=== PATIENT | male | born 1945 | race Caucasian/White ===

== ENCOUNTER 2022-07-02 10:45 | Inpatient (IN) | payer OTHER, SELFPAY ==
[2022-06-26 14:17] VITALS: BMI 21.4
[2022-07-02] VITALS (12 sets, daily range): BP systolic 105–140; BP diastolic 40–71; PULSE 61–72; RESP 10–18; TEMP 36.1–37.3; O2SAT 94–100; BMI 21.4
--- NOTE | 2022-07-02 | DI.RAD.S_ITS ---
PROCEDURE: XR LUMBAR SPINE 2-3V INDICATIONS: TLIF TECHNIQUE: 3 intraoperative fluoroscopic spot films were obtained COMPARISON: None. FINDINGS: Low resolution intraoperative fluoroscopic spot films were obtained during interbody fusion and pedicle screw placement the lower lumbar spine IMPRESSION: Fluoroscopic guidance Approved by: Bob Boyd M.D. on 07/02/2022 at 16:43
--- NOTE | 2022-07-02 11:19 | PM.PREOP ---
Pre-operative Note COVID-19 COVID-19 status: Negative Result date/Date tested (Pos, Neg/Pending): 07/01/22 Criteria for continued procedure: Expected advancement of disease process, Possibility delay results in more complex future surgery or treatment, Increased loss of function, Continuing or worsening of significant or severe pain, Deterioration of the patient's condition or overall health and Delay expected to result in less-positive ultimate med/surg outcome Interval Note History & Physical reviewed/Exam performed by Physician: Yes Changes to H&P: No
[2022-07-02 11:37] LABS: COVID19 -Nasal RAPID Negative (Negative)
[2022-07-02] MEDS: ACETAMINOPHEN 325 MG TABLET 975 MG PO (12:19)
[2022-07-02] MEDS: PREGABALIN 75 MG CAPSULE PO (12:20)
[2022-07-02] MEDS: LACTATED RINGERS 1,000 ML 42 ML IV ×2 (12:21→16:10)
--- NOTE | 2022-07-02 12:21 | P.OP_ITS ---
Operative Date/Time/Diagnoses Date of procedure: 07/02/22 Time of procedure: 13:00 Pre-op diagnosis: 1. 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 L2-3, L3-4 Postero-lateral and posterior interbody fusion 2. L2-3, L3-4 interbody cage placement. 3. L1-2, L2-3, L3-4 decompressive laminectomy with bilateral facetecomies 4. L2-3, L3-4 Posterior segmental instrumentation 5. L1-2 posterolateral fusion 6. [place] of bone marrow from iliac crest 7. Utilization of microsurgical technique and operating microscope 8 Utilization of robotic assisted navigation Same procedure as scheduled: Yes Indications: Patient has been having chronic back pain and worsening lumbar radiculopathy. Patient failed multiple conservative management with worsening pain weakness and numbness in her lower extremity. Patient has been having difficulty performing activity of daily living. After discussing risks benefits of treatment options, patient elected proceed with surgery. Surgeon: Laci Chery Scale Technician: Bertha Allred Click Yes if Unassisted: No Anesthesia Type: General Operative Notes Closure Type: primary Specimen(s): none sent Prosthetic devices, grafts, tissues, transplants, or devices: Globus CREO MIS screws, Rise cages Applied: catheter Estimated Blood Loss (mL): 200 Blood products transfused: none Procedure in detail: Patient was seen in the preoperative area. Risks and benefits of the surgery was discussed with the patient. Informed consent was obtained from the patient and placed in the chart. Surgical site was marked. Patient was taken to the operative room. General anesthesia was administered. Prophylactic antibiotic was given to the patient less than 30 min before the incision was made. Patient was placed into a prone position on the Mariano table. Patient's back was then prepped and draped in the sterile fashion. Time-out was performed at this time. After patient was prepped and draped, patient's PSIS was palpated and marked bilaterally. Small 1 cm incision was made over the PSIS for placement of the reference probes. Two trocar was placed into the PSIS 1 on each side. The reference probe was attached to the trocar of the reference apparatus. At this time the C-arm imaging was used to confirm AP and lateral of L1, L2, L3, L4 vertebrae and merged the C-arm imaging using the Stormpulse robotic navigation system with the CT of the lumbar spine. After successful merging was completed and confirmed, skin marker was used to kira out the skin incision using the Stormpulse robotic arm. Bilateral incision was made at this time. Pre templated trajectory was used and guided using the Stormpulse robotic navigation system for bilateral L1, L2, L3, L4 pedicle screw placement. This was done by using the robotic arm to guide the high-speed bur to make a cortical entry point. Next a drill was placed also using the robotic arm and guided using the navigation system drilling partially through bilateral L1, L2, L3, L4 pedicles. Next, L1, L2, L3, L4 pedicle screws it was pre templated and measured was placed onto the power road train driver and inserted into the pedicles bilaterally. After all 8 screws were placed C-arm imaging was taken of both AP and lateral to confirm the placement. Excellent placement of the screws were confirmed and a matched precisely with the pre planned screw placement using the navigation system. MARs retractor was inserted using [employer] guidence. Globus MARS retractors was placed inside the incision and docked onto the L1, L2, L3 lamina. Using microsurgical technique and operating microscope, a L1, L2, L3 laminectomy and L1-2, L2-3, L3-4 facetectomy was performed using a Kerrison rongeur. Patient was found have severe lateral recess and neural foramen sten osis which was fully decompressed after the laminectomy facetectomy. More than 75% of the facets were removed during the process of decompression rendering L1- 2, L2-3, L3-4 level grossly unstable and required a fusion procedure at the same time. The disc space at L1-2, L2-3, L3-4 was identified, and a total diskectomy was performed at L2-3, L3-4 level. The endplates were decorticated using a rasp and shaver. The total diskectomy and decortication was performed at L2-3, L3-4 level in order to to accomplish a L2-3, L3-4 interbody fusion. The local bone from the laminectomy and facetectomy was saved for local bone grafting. After the total diskectomy and decortication was completed, Trifecta bone graft material was combined with local bone that was harvested earlier. At this time, a separate skin is incision was made over the iliac crest. A Jamshidi needle was inserted into the iliac crest through a separate skin incision. 5 cc of bone marrow aspiration was obtained through the separate skin incision using a Jamshidi needle from the iliac crest. The bone marrow aspiration was combined with local bone and the Trifecta bone grafting material. The bone grafting material was placed into the L2-3, L3-4 interbody space along with expandable cages. One cage each was inserted into the L2-3 L3-4 interbody space along with bone graft material. The cage was expanded to its maximum height using the torque limiting screwdriver. The disc preparation as well as the cage insertion were also performed under navigation guidance. After the cage was placed, AP and lateral C-arm imaging was taken to confirm placement of the cage and excellent position was confirmed. Globus MARS retractor was inserted and docked onto the L1-2, L2-3, L3-4 posterolateral gutter on the right side. Using the power drill, posterior- lateral decortication was performed at L1-2, L2-3, L3-4 level until bleeding cortical bone was identified. The remaining bone grafting material was placed into the L1-2, L2-3, L3-4 posterior lateral gutter he order to accomplish posterolateral fusion at the L1-2, L2-3, L3-4 level. At this time the tulips were attached to the L1, L2, L3, L4 pedicle screw sh anks. After measuring the length of the rods, they were inserted into the tulips of the pedicle screws and locked in place using locking caps and torque limiting screwdriver bilaterally. Total 8 caps and 2 titanium rods was used in order to complete the posterior instrumentation construct. After all the hardware was placed, and confirmed with AP and lateral C-arm imaging, the wound was then irrigated with sterile normal saline and packed with Ray-Jong gauze for 3 min to accomplish hemostasis. After the gauze was removed the deep fascia was closed with #1 Vicryl suture. The subcutaneous layer was closed with 2-0 Vicryl. The skin was closed with skin presley. Patient tolerated the procedure well. There were no complications. Neuro monitoring system was used to monitor patient's neurologic status throughout entire procedure. There was no disturbance of the neural monitoring signals throughout the case. Complications: none Post-operative Condition: stable Disposition: PACU Plan for aftercare: Admit to inpatient hospital
[2022-07-02] MEDS: CEFAZOLIN 2 GM/100 ML PREMIX 100 ML IV ×2 (12:27→16:17)
--- NOTE | 2022-07-02 13:07 | SUR.OPER ---
Prone on spine table, head in foam head support, padded chest and pelvic supports, gel pad at knees, lower legs supported by pillows; nipples, genitalia and toes free of pressure, arms secured on foam padded arm boards at <90 degrees abduction. Tape over blanket at thigh secured to table.
[2022-07-02] MEDS: BUPIVACAINE LIPOSOME 266 MG/20 ML VIAL INJ (13:33)
[2022-07-02] MEDS: BUPIVACAINE 0.5% W/ EPI (PF) 30 ML VIAL INJ (13:33)
[2022-07-02] MEDS: HYDROMORPHONE 2 MG INJ IV (17:04)
[2022-07-02] MEDS: LORazepam 2 MG/ML INJ 0.25 MG IV (17:08)
[2022-07-02] MEDS: hydrOXYzine 50 MG/ML INJ 25 MG IM (17:10)
[2022-07-02] MEDS: ONDANSETRON 4 MG/2 ML INJ IV (17:15)
[2022-07-02] MEDS: SODIUM CHLORIDE 0.9% 1,000 ML 100 ML IV (20:09)
[2022-07-02] MEDS: hydrOXYzine pamoate 25 MG CAPSULE PO (21:57)
[2022-07-02] MEDS: HYDROMORPHONE 0.5 MG INJ IV (21:57)
[2022-07-03] MEDS: HYDROMORPHONE 0.5 MG INJ IV ×4 (00:35→21:59)
[2022-07-03] MEDS: CEFAZOLIN 2 GM/100 ML PREMIX 100 ML IV (00:35)
[2022-07-03 04:00] VITALS: BP 108/44; PULSE 74; RESP 17; TEMP 36.4; O2SAT 94
[2022-07-03 04:19] LABS: Hematocrit 28.1 % (41-53)
[2022-07-03] MEDS: DOCUSATE 100 MG CAPSULE PO ×2 (09:09→22:02)
[2022-07-03] MEDS: hydroCHLOROthiazide 25 MG TABLET 12.5 MG PO (09:09)
[2022-07-03] MEDS: atenoloL 25 MG TABLET PO (09:09)
[2022-07-03] MEDS: ACETAMINOPHEN 325 MG TABLET 650 MG PO ×2 (09:09→15:58)
[2022-07-03] MEDS: LEVOTHYROXINE 75 MCG TABLET PO (09:09)
[2022-07-03] MEDS: OXYCODONE IR 5 MG TABLET 10 MG PO ×2 (09:10→12:22)
--- NOTE | 2022-07-03 09:26 | P.PN_ITS ---
Subjective Subjective Date Patient Seen: 07/03/22 Time Patient Seen: 09:27 Interval history: Patient states his pain is moderate to severe. Denies fever or chills. No nausea or vomiting. History of weakness in the left lower extremity prior to surgery. Exam Vital Signs (past 8 hours): - 07/03/22 04:00 Temperature 97.6 F Pulse Rate 74 Respiratory Rate 17 Blood Pressure 108/44 L Pulse Oximetry 94 Oxygen Flow Rate 0 Oxygen Delivery Method Room Air Oxygen Flow Rate 0 Narrative Exam Narrative: 77-year-old male resting comfortably in bed in no apparent distress. Sensation intact to light touch bilateral lower extremities. 5/5 strength right lower extremity. Patient unable to move his toes on the left and is unable to dorsiflex or plantar flex on the left. New dressing is clean, dry and intact. The prior dressing was removed earlier this morning and was saturated. Nurse states there was scant drainage from around 1 of the staple sites otherwise the presley were intact. Const General: cooperative and comfortable Nutritional Appearance: average body habitus Orientation: alert Resp Effort & Inspection: normal respiratory effort and able to speak in complete sentences Objective Labs 07/03/22 03:50 Labs: Laboratory Results - last 24 hr 07/02/22 07/03/22 11:19 03:50 Hgb 10.0 L Hct 28.1 L SARS-CoV-2 (PCR) Negative PFSH Medical History Abdominal aortic aneurysm (AAA) BPH (benign prostatic hyperplasia) Chronic viral hepatitis C Cirrhosis COVID-19 Easy bruisability Esophoria Hearing impaired HLD (hyperlipidemia) HTN (hypertension) Hypothyroidism Liver cell carcinoma Sciatica Stiff neck Thrombocytopenia Surgical History History of esophagogastroduodenoscopy (EGD) History of surgical procedure (2014) Hx of bilateral cataract extraction (~2014) Hx of colonoscopy Hx of tonsillectomy Social History household members: spouse Smoking Status: Former smoker alcohol intake: former Assessment & Plan Post-op Postoperative Procedures: Procedures Operation Date: 07/02/22 12:30 Actual Procedure Side Surgeon p L2-3, L3-4 TLIF w. posterior instrumentation, L1-4 PSF w. instrumentation - Robot Laci Chery MD Postoperative day: 1 Postoperative status narrative: Stable status post lumbar fusion, history of weakness left lower extremity Anemia due to acute blood loss during surgery Postoperative plan narrative: Continue to work on pain control Mobilize with physical therapy, limit bending, twisting, lifting Discontinue Mcconnell catheter Discharge home today or tomorrow depending on his ability to mobilize with physical therapy.
[2022-07-03 09:34] VITALS: BMI 21.4
[2022-07-03] MEDS: hydrOXYzine pamoate 25 MG CAPSULE PO ×2 (09:51→15:58)
[2022-07-03] MEDS: ONDANSETRON 4 MG/2 ML INJ IV (09:51)
[2022-07-03 10:41] VITALS: BP 136/49; PULSE 75; RESP 16; TEMP 36.6; O2SAT 98
--- NOTE | 2022-07-03 12:40 | PT.IIE ---
Current Diagnoses Spinal stenosis, lumbar region with neurogenic claudication (07/02/22) Surgery Performed Operation Date: 07/02/22 12:30 Actual Procedures p L2-3, L3-4 TLIF w. posterior instrumentation, L1-4 PSF w. instrumentation -Robot - Laci Chery MD Surgical History (Last Reviewed 07/03/22 @ 09:32 by YENNI AcostaC) History of esophagogastroduodenoscopy (EGD) History of surgical procedure (2014) Hx of bilateral cataract extraction (~2014) Hx of colonoscopy Hx of tonsillectomy Medical History (Last Reviewed 07/03/22 @ 09:32 by YENNI AcostaC) Abdominal aortic aneurysm (AAA) BPH (benign prostatic hyperplasia) Chronic viral hepatitis C Cirrhosis COVID-19 Easy bruisability Esophoria Hearing impaired HLD (hyperlipidemia) HTN (hypertension) Hypothyroidism Liver cell carcinoma Sciatica Stiff neck Thrombocytopenia Physical Therapy Inpatient Evaluation/Re-Eval M1 PT/OT-IP Prior Functional Status Start: 07/03/22 10:01 Freq: NEEDED Status: Active Protocol: Document 07/03/22 12:29 [facility] (Rec: 07/03/22 12:40 [facility] [id number]) Medical Review Prior Functional Status Medical History Reviewed Yes Diet/Fluid Consistency Regular Communication [place]; wears hearing aides enrique Mobility and Gait walked with FWW or cane, has both Activities of Daily Living and IADL's modified independent Social History Household Members spouse Living Arrangements Mobile home Number of Stairs To Enter/Railing? 4 Home Environment Standard Height Toilet Home Equipment Front Wheel Walker,Straight Cane Employment Status Unknown M2 PT-IP Current Condition Start: 07/03/22 10:01 Freq: NEEDED Status: Active Protocol: Document 07/03/22 12:29 [facility] (Rec: 07/03/22 12:40 [facility] [id number]) Physical Therapy Current Condition Current Condition Evaluation Date 07/03/22 Treatment Diagnosis weakness s/p lumbar surgery Onset Date 07/02/22 M3 PT-IP Subjective Start: 07/03/22 10:01 Freq: NEEDED Status: Active Protocol: Document 07/03/22 12:29 [facility] (Rec: 07/03/22 12:40 [facility] [id number]) Subjective Physical Therapy Visit Type Type Initial Evaluation Visit Start Time 10:00 Visit Stop Time 10:30 Total Visit Minutes 30 Number of TELEVISION PRODUCTION TECHNICIAN Visits 0 Physical Therapy Visit Comments Patient Comments Hoping to go home today or tomorrow with assistance with his Patient Goals return home Therapy Pain Assessment Pain When Pain Assessed At Rest Pain Present Pain Present Pain Reported Location Left Back Intensity 5 Scale Used Numeric (0 - 10) Description Aching,Burning,Tender, Tightness M4 PT-IP Mobility and Gait Start: 07/03/22 10:01 Freq: NEEDED Status: Active Protocol: Document 07/03/22 12:29 [facility] (Rec: 07/03/22 12:40 [facility] [id number]) PT-Transfer Assessment Sit to and From Stand Sit to and from Stand Contact Guard Assistance Equipment Transfer Assistive Device Gait Belt,Front Wheeled Walker Transfers Transfer Destination Chair Transfer Technique stand to sit Transfer Ability Level of Assist Contact Guard Assistance Comments Mobility Comments Patient occasionally overweight-shifting this am, lifting 1-2 wheels of walker off floor, requ CGA to min assist for bal Gait Assessment Gait Gait Assistance Required: Contact Guard Assist,Minimum Assistance Distance (Feet) 60 Able to Maintain Weight Bearing Status Yes During Gait Assistive Devices Assistive Device Gait Belt,Front Wheeled Walker Gait Deviations General Gait Pattern Antalgic,Flexed Trunk,Lateral Trunk Lean,Wide Based Gait Factors Limiting Gait Function Factors Limiting Gait Function Decreased Strength,Pain Comments Gait Comments lacking ankle df and pf left LE, steppage gait Stair Climbing Assessment Comments Stair Climbing Comments plan to assess in pm PT-Balance Assessment Sitting Balance and Reactions Static Sitting Balance Ability Good Dynamic Sitting Balance Ability Good Standing Balance and Reactions Static Standing Balance Ability Fair Dynamic Standing Balance Ability Poor M5 PT-IP Objective Assessments Start: 07/03/22 10:01 Freq: NEEDED Status: Active Protocol: Document 07/03/22 12:29 [facility] (Rec: 07/03/22 12:40 [facility] [id number]) Orientation Orientation/Cognition Level of Alertness Alert Orientation Name,Place,Situation Language Function Ability No Deficits Noted Safety Awareness Decreased Safety Awareness Memory Description No Deficits Noted Gross Range of Motion Lower Extremity ROM Assessment Within Functional Limits Strength Comments Strength Comments no MMT due to surgery but 0/5 ankle df and pf left M6 PT-IP Treatment Start: 07/03/22 10:01 Freq: NEEDED Status: Active Protocol: Document 07/03/22 12:29 [facility] (Rec: 07/03/22 12:40 [facility] [id number]) Physical Therapy Treatment Education Education Provided Precautions,Safety M7 PT-IP Assessment and Plan Start: 07/03/22 10:01 Freq: NEEDED Status: Active Protocol: Document 07/03/22 12:29 [facility] (Rec: 07/03/22 12:40 [facility] [id number]) PT Summary Assessment and Plan Potential Rehabilitation Potential Good Status of Condition at Evaluation Evolving Summary Impairments Pain,Strength,Balance,Bed Mobility,Transfers,Gait, Activity Tolerance Goals Bed Mobility Goal Independent Transfer Goal Independent Gait Goal Standby Assistance Gait Distance 120 Other Goals patient able to verbalize post -op precautions Days to Meet Goals 5 Treatment Plan Physical Therapy Treatment Plan Bed Mobility Training,Transfer Training,Gait Training, Therapeutic Exercise,Post Op Education,Hot or Cold Pack Other Recommendations and Next Treatment logroll education and practice Focus (pt. up in chair this am prior and after treatment.) stair training Precautions Lumbar Precautions Log Roll,No Twisting,Limit Bending,Lifting Restriction of 10 lbs Recommendations To Nursing Amount of Assist Needed 1 Person Assist Discharge Recommendations PT Discharge Recommendations Home with Assistance,Home Health Transportation Needs at Discharge Private Vehicle
--- NOTE | 2022-07-03 14:39 | OT.IP.EVAL ---
Current Diagnoses Spinal stenosis, lumbar region with neurogenic claudication (07/02/22) Surgery Performed Operation Date: 07/02/22 12:30 Actual Procedures p L2-3, L3-4 TLIF w. posterior instrumentation, L1-4 PSF w. instrumentation -Robot - Laci Chery MD Past Medical History (Last Reviewed 07/03/22 @ 09:32 by Brendon Lazcano PA-C) Abdominal aortic aneurysm (AAA) BPH (benign prostatic hyperplasia) Chronic viral hepatitis C Cirrhosis COVID-19 Easy bruisability Esophoria Hearing impaired HLD (hyperlipidemia) HTN (hypertension) Hypothyroidism Liver cell carcinoma Sciatica Stiff neck Thrombocytopenia Surgical History (Last Reviewed 07/03/22 @ 09:32 by Brendon Lazcano PA-C) History of esophagogastroduodenoscopy (EGD) History of surgical procedure (2014) Hx of bilateral cataract extraction (~2014) Hx of colonoscopy Hx of tonsillectomy Occupational Therapy Inpatient Evaluation/Re-Eval M1 PT/OT-IP Prior Functional Status Start: 07/03/22 10:01 Freq: NEEDED Status: Active Protocol: Document 07/03/22 12:29 SAK (Rec: 07/03/22 12:40 [facility] [id number]) Medical Review Prior Functional Status Medical History Reviewed Yes Diet/Fluid Consistency Regular Communication [place]; wears hearing aides enrique Mobility and Gait walked with FWW or cane, has both Activities of Daily Living and IADL's modified independent Social History Household Members spouse Living Arrangements Mobile home Number of Stairs To Enter/Railing? 4 Home Environment Standard Height Toilet Home Equipment Front Wheel Walker,Straight Cane Employment Status Unknown M1 PT/OT-IP Prior Functional Status Start: 07/03/22 15:33 Freq: NEEDED Status: Active Protocol: Document 07/03/22 14:03 [facility] (Rec: 07/03/22 15:59 [facility] [id number]) Medical Review Prior Functional Status Medical History Reviewed Yes Diet/Fluid Consistency Regular Communication [place]; wears hearing aides enrique Mobility and Gait walked with FWW or cane, has both Activities of Daily Living and IADL's modified independent. Pt's did IADL's and pain the bills Prior Functional Level (Other details) Pt states his able to assist him at home Social History Household Members spouse Living Arrangements Mobile home Number of Floors (Floors) One Floor Number of Stairs To Enter/Railing? 5 steps with left rail to get into the mobile house Home Environment Standard Height Toilet,Tub/ Shower Home Equipment Front Wheel Walker,Straight Cane,Hog Feeder M2 OT-IP Current Condition Start: 07/03/22 15:33 Freq: Status: Active Protocol: Document 07/03/22 14:03 [facility] (Rec: 07/03/22 15:59 [facility] [id number]) Occupational Therapy Current Condition Current Condition Evaluation Date 07/03/22 Treatment Diagnosis S/p L2-3, L3-4 TLIF, L1-4 PSF Diagnosis Onset Date 07/02/22 Post Operative Precautions Lumbar Precautions Log Roll,No Twisting,Limit Bending,Lifting Restriction of 10 lbs,Gait Belt above Incisional Area M3 OT- IP Subjective and Pain Start: 07/03/22 15:33 Freq: Status: Active Protocol: Document 07/03/22 14:03 [facility] (Rec: 07/03/22 15:59 [facility] [id number]) OT- Subjective Occupational Therapy Visit Type Type Initial Evaluation Visit Start Time 14:03 Visit Stop Time 14:39 Total Visit Minutes 36 Occupational Therapy Visit Comments Patient Comments Pt agreed to get up to use the bathroom and brush his teeth. Patient/Caregiver Goals To go home OT Pain Assessment Pain When Pain Assessed During Mobility Pain Present Pain Present Pain Reported Location Left Back Intensity 7 Scale Used Guajardo-Mcarthur (Faces) M4 OT- IP ADL's Start: 07/03/22 15:33 Freq: Status: Active Protocol: Document 07/03/22 14:03 [facility] (Rec: 07/03/22 15:59 [facility] [id number]) OT [id number] Comments OT Self-Feeding Comments Pt not hungry but was able to drink an Ensure after asking and checking with pt's nurse OT ADL-Grooming General Evaluation Grooming Ability Standby Assistance Comments OT Grooming Comments Pt able to do with FWW in front of him. OT ADL-Oral Care General Eval Oral Care Ability Independent OT ADL-Dressing General Eval Lower Body Dressing Ability Maximum Assistance Comments OT Dressing Comments Able to practice use of sock aid and lumber bearer. Pt a bit groggy and needing cues. OT ADL-Toileting General Evaluation Toileting Ability Standby Assistance Comments OT Toileting Comments CGA/SBA with FWW while pt standing to urinate OT ADL-Bathing Comments OT Bathing Comments Pt refusing at this time. Pt has a shower chair in his tub/ shower at home. M5 OT- IP IADL's Start: 07/03/22 15:33 Freq: Status: Active Protocol: Document 07/03/22 14:03 [facility] (Rec: 07/03/22 15:59 [facility] [id number]) OT-Instrumental Activities of Daily Living Deficits IADL Deficits Identified Deficits Home Safety Awareness Awareness of Need for Assistance at Home Good Awareness Ability to Problem Solve Emergency Able to Problem Solve Situations Home Safety Comments Pt a little groggy and needing vc for safety and assist with balance at this time and will need assist from his for needs. Money Management Money Management Caregiver Provides Assistance Meal Preparation Meal Preparation Caregiver Provides Assist Chemical Engineering Intern Chemical Engineering Intern Caregiver Provides Assist M6 OT- IP Functional Cognition Start: 07/03/22 15:33 Freq: Status: Active Protocol: Document 07/03/22 14:03 [facility] (Rec: 07/03/22 15:59 [facility] [id number]) Cognitive Factors Limiting Selfcare Function Cognitive Ability Level of Alertness Alert,Drowsy Attention Span Ability Capable of Focused Attention, Capable of Sustained Attention Ability to Follow Commands Able to Follow One Step Commands with Increased Time, Able to Follow One Step Commands with Repetition Safety Awareness Decreased Recall of Precautions,Decreased Ability to Apply Precautions, Underestimates Need for Assistance Cognitive Comments Cognitive Assessment Comments Pt needing cues to keep the FWW in front of him, vc for lumbar precautions for ADl and mobility needs. OT- Vision and Hearing OT- Hearing Assessment OT- Hearing Assessment Use of Hearing Aids OT- Vision Assessment Visual Acuity Glasses For Reading M7 OT- IP Mobility and Balance Start: 07/03/22 15:33 Freq: Status: Active Protocol: Document 07/03/22 14:03 [facility] (Rec: 07/03/22 15:59 [facility] [id number]) OT-Transfer Assessment Sit to and From Stand Sit to and from Stand Minimal Assistance,Moderate Assistance Transfers Transfer Ability Minimal Assistance Technique Transfer Destination Bed,Chair Transfer Technique Stand Step Pivot Devices Transfer Assistive Devices Gait Belt,Front Wheeled Walker Comments Mobility Comments MIN/MODA to stand and vc to use his hands to push up from the bed or armrests of the recliner to stand. OT- Balance Assessment Sitting Balance and Reactions Static Sitting Balance Ability Good Dynamic Sitting Balance Ability Good Standing Balance and Reactions Static Standing Balance Ability Fair Dynamic Standing Balance Ability Fair M8 OT- IP Objective Assessments Start: 07/03/22 15:33 Freq: Status: Active Protocol: Document 07/03/22 14:03 [facility] (Rec: 07/03/22 15:59 [facility] [id number]) OT-Muscle Tone Assessment Muscle Tone WNL Yes M9 OT- IP Assessment and Plan Start: 07/03/22 15:33 Freq: Status: Active Protocol: Document 07/03/22 14:03 [facility] (Rec: 07/03/22 15:59 [facility] [id number]) OT Summary Assessment and Plan Potential Rehabilitation Potential Good Analytic Complexity at Evaluation Low Summary OT Impairments Pain,Balance,Functional Mobility,Grooming,Dressing, Toileting,Bathing,Toilet Transfers,Shower Transfers, Activity Tolerance Progress Towards Goals Slow Progress due to Pain,Slow Progress due to Activity Tolerance Assessment Summary Pt low complexity and main barriers are steps , a little groggy and needing cues to incorporate his back precautions for ADl and mobility needs. Pt looking to go home tomorrow and has a supportive to assist. Goals Grooming Goal Independent Dressing Goal Minimal Assistance Toileting Goal Independent Bathing Goal Standby Assistance Toilet Transfer Goal Standby Assistance Shower Transfer Goal Minimal Assistance Patient/Caregiver Education Goal Caregiver Independent Assisting Patient Days to Meet Goals 5 Frequency of Treatment Frequency Of Treatment Once a Day Treatment Plan OT Treatment Plan ADL Training,Functional Mobility,Patient/Family Education,Discharge Planning Discharge Recommendations OT Discharge Recommendations Home with 01/12 Assist Available Transportation Needs at Discharge Private Vehicle
--- NOTE | 2022-07-03 15:04 | CM.DANOTE ---
Initial DCP Assessment Note Pt is a 77 yo male, resident of [place] , now POD#1 from: p L2-3, L3-4 TLIF w. posterior instrumentation, L1-4 PSF w. instrumentation -Robot - Laci Chery MD PCP: Maxine Sosa Payer: [facility] Reviewed chart, pt discussed in multidisciplinary rounds this morning. Therapy has cleared pt for return home w/family to assist and pt has planned for home, DC order from Ortho expected this evening vs tomorrow depending on pain management - which patient is currently describing as moderate to severe No barriers identified at this time to patient's safe discharge home w/family to assist; close outpatient f/u recommended. SAJI Jeffery Discharge Planning/Care Management CM Discharge Assessment Start: 07/03/22 14:59 Freq: Status: Active Protocol: Document 07/03/22 15:00 [facility] (Rec: 07/03/22 15:03 [id number]) Discharge Planning Assessment Assigned Donations Attendant SAJI Palmer DPOA/Assigned Designee Name Agata Marquis, spouse Contact Information [phone] Advance Directives? Yes Advance Directives on File No History Provided By Patient,Medical Record Prior Living Arrangements Mobile home Household Members spouse Type of transporation used prior to Relies on Others admit Independent with ADL's No: Mod Indp. [place] walks w/FWW Is patient alert and oriented? Yes Needs Assistance With Meal Prep,Home Chores / Shopping Patient/Family Preference OP PT Therapy Barriers to Discharge No Comment Home w/spouse to assist, outpatient PT. Cleared by therapy for this plan, likely Thursday07.04.22 dpending on pain control Discharge Plan Home Transportation Arrangement Spouse Referrals Initiated None needed
[2022-07-03 15:22] VITALS: BP 115/53; PULSE 75; RESP 16; TEMP 36.2; O2SAT 98
--- NOTE | 2022-07-03 16:04 | PT.IPTN ---
Current Diagnoses Spinal stenosis, lumbar region with neurogenic claudication (07/02/22) Surgery Performed Operation Date: 07/02/22 12:30 Actual Procedures p L2-3, L3-4 TLIF w. posterior instrumentation, L1-4 PSF w. instrumentation -Robot - Laci Chery MD Physical Therapy Treatment Note M2 PT-IP Current Condition Start: 07/03/22 10:01 Freq: NEEDED Status: Active Protocol: Document 07/03/22 15:35 SP (Rec: 07/03/22 17:41 SP [id number]) Physical Therapy Current Condition Current Condition Evaluation Date 07/03/22 Treatment Diagnosis weakness s/p lumbar surgery Onset Date 07/02/22 M3 PT-IP Subjective Start: 07/03/22 10:01 Freq: NEEDED Status: Active Protocol: Document 07/03/22 15:35 SP (Rec: 07/03/22 17:41 SP [id number]) Subjective Physical Therapy Visit Type Type Treatment Note Visit Start Time 15:35 Visit Stop Time 16:04 Total Visit Minutes 29 Notes Vitals: seated in chair: BP 131/64 HR 75 SaO2 98% on RA Number of FRONT OFFICE AGENT Visits 1 Physical Therapy Visit Comments Patient Comments Hoping to go home tomorrow with assistance with his . Patient Goals return home but agreeable to going to SNF if needed. Therapy Pain Assessment Pain When Pain Assessed At Rest Pain Present Pain Present Pain Reported Location Left Back Intensity 5 Scale Used 5/10 resting, 7-8/10 with mobility Description Spasm,Stabbing,With Movement Pain Behaviors Facial Grimacing,Guarding, Restlessness,Wincing Pain Management Techniques Distraction,Modification of Treatment,Re-positioning, Timing of Activity with Medications M4 PT-IP Mobility and Gait Start: 07/03/22 10:01 Freq: NEEDED Status: Active Protocol: Document 07/03/22 15:35 SP (Rec: 07/03/22 17:41 SP [id number]) PT-Transfer Assessment Sit to and From Stand Sit to and from Stand Maximum Assistance,1 Person Assistance,Use of Upper Extremities Equipment Transfer Assistive Device Gait Belt,Front Wheeled Walker Orthotic/Prosthetic Devices or Brace: No Transfers Transfer Destination Bed,Chair Transfer Technique SPT, ambulated with FWW Transfer Ability Level of Assist Minimal Assistance,Moderate Assistance,Maximum Assistance, 1 Person Assistance,Use of Upper Extremities Comments Mobility Comments Pt up in chair when arrived. Reports was premedicated recently still in moderate pain. Scoot to EOchair CGA. STS Max A x1 with trunk coming to full stand, very heavy into BUEs on Chair arms, cued wt shift forward and quad facilitation, impulsive each UE onto FWW. Mod/Max A for trunk steadying w/ FWW, shaky BLEs/ BUEs. SPT w/ FWW chair> bed unsteady BUE/BLEs Mod/Max A x1 and cues for sequencing w / FWW therapist little support with FWW mgt, Mod A slow descent to sit on L side bed. SBA cued breath due to heavy BUE WB on bed and trunk/ BUEs shaking. STS Max A x1 Mod BUE WB support, gait around end bed to L side bed unsteady BUEs and impulsive FWW mgt/ trunk sways lateral, noted L ankle unable complete DF during advancement/lifts hip/ knee, states is his baseline. Pt BUEs shaking uncontrolled and trunk unsteady CG/Min A seated at EOB. Pt declined recommendation to rest in bed states can not lay on side L side for log roll technique, requested to walk back to other side and sit back in chair, will be sleeping in chair at home. STS from EOB, gait around end bed w/FWW Mod/ Max A unsteady, jerked FWW impulsively to avoid sink and tipped FWW to R with near LOB, FRONT OFFICE AGENT provided Max A for stability recover, cued upright posturing/stop breath helped decrease unsteadiness pt requested further gait to bathroom w/FWW mod/ Max A x1, completed voiding minimally ( not measured) standing FWW over toilet Min/Mod A trunk stability and BUE moderate WB on FWW. Pt returned to chair Mod A x1 improved gait and stability with slower pacing and more proximity near back legs of FWW and continued cues for posturing and proximity to back legs FWW. Pt had legs elevated, chair alarm donned and all needs in reach before left. Pt stated will arrange for his to get ride here by 11am tomorrow to initiated CGT. Suggest premedicate if needed. Will continue to assess progress. Gait Assessment Gait Gait Assistance Required: Moderate Assistance,Maximum Assistance,1 Person Assist Distance (Feet) 20 Able to Maintain Weight Bearing Status Yes During Gait Assistive Devices Assistive Device Gait Belt,Front Wheeled Walker Gait Deviations General Gait Pattern Antalgic,Decreased Stride Length,Decreased Feet Clearance,Flexed Trunk,Lateral Trunk Lean,Step-to Gait,Wide Based Gait Factors Limiting Gait Function Factors Limiting Gait Function Decreased Activity Tolerance, Decreased Strength,Difficulty Following Directions,Limited Range of Motion,Pain,Poor Balance,Poor Safety Awareness Comments Gait Comments lacking ankle df and pf left LE, steppage gait, Unsteady/ shaky BUE/ BLEs, heavy on FWW requiring max cues for posturing, breath slow pacing LE advancement, closer to FWW near back legs and appropriate hand placement on fWW handles for safety. Slow FWW repositioning due to impulsive tipped x1 Mod/Max A for mobiltiy support. Stair Climbing Assessment Comments Stair Climbing Comments Unable to assess due to lack strength, stability, pain and activity tolerance. PT-Balance Assessment Sitting Balance and Reactions Static Sitting Balance Ability Good Dynamic Sitting Balance Ability Fair Standing Balance and Reactions Static Standing Balance Ability Poor Dynamic Standing Balance Ability Poor Device Used FWW M5 PT-IP Objective Assessments Start: 07/03/22 10:01 Freq: NEEDED Status: Active Protocol: Document 07/03/22 12:29 [facility] (Rec: 07/03/22 12:40 [facility] [id number]) Orientation Orientation/Cognition Level of Alertness Alert Orientation Name,Place,Situation Language Function Ability No Deficits Noted Safety Awareness Decreased Safety Awareness Memory Description No Deficits Noted Gross Range of Motion Lower Extremity ROM Assessment Within Functional Limits Strength Comments Strength Comments no MMT due to surgery but 0/5 ankle df and pf left M6 PT-IP Treatment Start: 07/03/22 10:01 Freq: NEEDED Status: Active Protocol: Document 07/03/22 15:35 SP (Rec: 07/03/22 17:41 SP [id number]) Physical Therapy Treatment Education Education Provided Safety, breath for decrease anxiousness. Instructed use of inspirometer. M7 PT-IP Assessment and Plan Start: 07/03/22 10:01 Freq: NEEDED Status: Active Protocol: Document 07/03/22 15:35 SP (Rec: 07/03/22 17:41 SP [id number]) PT Summary Assessment and Plan Potential Rehabilitation Potential Good Status of Condition at Evaluation Evolving Summary Impairments Pain,Strength,Balance,Bed Mobility,Transfers,Gait, Activity Tolerance Progress Towards Goals Slow Progress due to Pain,Slow Progress due to Medical Issues,Slow Progress due to Activity Tolerance Assessment Summary Pt increased physical support due to shakiness/unsteady BUEs /BLEs this tx Max A x1 with increased pain and anxiousness during mobility. Continues decrease L ankle DF/PF mobility and increased pain premedicated. Pt requesting and CGT tomorrow at 11 for assessment if able to walk better and do stairs. Will continue to assess progress. Recommending SNF vs 01/12 available if able to safely support pt. Needs complete 4 stairs. Goals Bed Mobility Goal Independent Transfer Goal Independent Gait Goal Standby Assistance Gait Distance 120 Other Goals patient able to verbalize post -op precautions Days to Meet Goals 5 Frequency of Treatment Frequency Of Treatment Twice a Day Treatment Plan Physical Therapy Treatment Plan Bed Mobility Training,Transfer Training,Gait Training, Therapeutic Exercise,Post Op Education,Hot or Cold Pack Other Recommendations and Next Treatment Check precautions, bed mob, Focus transfers, logroll education, longer distance gait w/FWW w/c follow, stair training if able. CGT at 11am 07/04 Precautions Lumbar Precautions Log Roll,No Twisting,Limit Bending,Lifting Restriction of 10 lbs,Gait Belt above Incisional Area Recommendations To Nursing Amount of Assist Needed 1 Person Assist Discharge Recommendations PT Discharge Recommendations Home with 01/12 Assist Available,Home Health,SNF Rehab,Home vs SNF Transportation Needs at Discharge Private Vehicle,Wheelchair/ Cabulance
[2022-07-03] MEDS: OXYCODONE IR 5 MG TABLET PO (16:12)
[2022-07-03 16:13] VITALS: BP 131/64; PULSE 75; RESP 17; TEMP 36.4; O2SAT 93
[2022-07-03] MEDS: SENNOSIDES 8.6 MG TABLET 17.2 MG PO (22:02)
[2022-07-03] MEDS: PRAVASTATIN 20 MG TABLET 40 MG PO (22:02)
[2022-07-03] MEDS: FINASTERIDE 5 MG TABLET 2.5 MG PO (22:03)
[2022-07-03] MEDS: TRAZODONE 100 MG TABLET 200 MG PO (22:07)
[2022-07-04] MEDS: HYDROMORPHONE 0.5 MG INJ IV (01:50)
[2022-07-04 04:00] VITALS: BP 140/71; PULSE 75; RESP 16; TEMP 36.6; O2SAT 97
[2022-07-04] MEDS: OXYCODONE IR 5 MG TABLET 10 MG PO ×4 (04:09→14:57)
--- NOTE | 2022-07-04 07:56 | P.DS_ITS ---
History of Present Illness History of Present Illness Date Patient Seen: 07/04/22 Time Patient Seen: 07:30 Chief complaint: s/p TLIF Narrative: Patient is up sitting in his chair this morning comfortably. He states that he has nagging pain that is well controlled with medication. He has been sitting up to use the bedside urinal without difficulty. He states his is coming this morning at 11:00 a.m. and he would like to discharge home today if cleared by Physical therapy. Discharge Providers Provider Date of admission: 07/02/22 10:45 Discharge Date: 07/04/22 Primary care physician: PETER Hurtado Consults: 07/02/22 19:53 Consult to Occupational Therapy Evaluate & Treat Comment: Physician Instructions: Evaluate and treat Consult to Physical Therapy Evaluate & Treat Comment: Physician Instructions: Evaluate and Treat Discharge provider: Lynnette Varela PA-C Summary Hospital Course Discharge Diagnosis: Status post TLIF Hospital Course: Operative Date/Time/Diagnoses Date of procedure: 07/02/22 Time of procedure: 13:00 Pre-op diagnosis: 1. 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 L2-3, L3-4 Postero-lateral and posterior interbody fusion 2.? L2-3, L3-4 interbody cage placement. 3.? L1-2, L2-3, L3-4 decompressive laminectomy with bilateral facetecomies 4.? L2-3, L3-4 Posterior segmental instrumentation 5. L1-2 posterolateral fusion 6. Riley of bone marrow from iliac crest 7. Utilization of microsurgical technique and operating microscope 8 Utilization of robotic assisted navigation Same procedure as scheduled: Yes Indications: Patient has been having chronic back pain and worsening lumbar radiculopathy. Patient failed multiple conservative management with worsening pain weakness and numbness in her lower extremity.? Patient has been having difficulty performing activity of daily living.? After discussing risks benefits of treatment options, patient elected proceed with surgery. Surgeon: Laci Chery Sales And Marketing Engineer: Bertha Allred Click Yes if Unassisted: No Anesthesia Type: General Operative Notes Closure Type: primary Specimen(s): none sent Prosthetic devices, grafts, tissues, transplants, or devices: Globus CREO MIS screws, Rise cages Applied: catheter Estimated Blood Loss (mL): 200 Blood products transfused: none Status at Discharge Cognitive/behavioral status at discharge: oriented Functional status at discharge: uses cane/walker Overall status at discharge: patient is progressing back to baseline Exam Vital Signs (past 8 hours): - 07/04/22 04:00 Temperature 97.8 F Pulse Rate 75 Respiratory Rate 16 Blood Pressure 140/71 Pulse Oximetry 97 Oxygen Flow Rate 0 Oxygen Delivery Method Room Air Oxygen Flow Rate 0 Narrative Exam Narrative: Awake, alert, and oriented. Strength and sensation intact to bilateral lower extremities. Bilateral calves soft, compressible, nontender with no palpable cords or masses. Intraoperative dressing clean, dry, and intact. Objective Labs 07/03/22 03:50 PFSH Medical History Abdominal aortic aneurysm (AAA) BPH (benign prostatic hyperplasia) Chronic viral hepatitis C Cirrhosis COVID-19 Easy bruisability Esophoria Hearing impaired HLD (hyperlipidemia) HTN (hypertension) Hypothyroidism Liver cell carcinoma Sciatica Stiff neck Thrombocytopenia Surgical History History of esophagogastroduodenoscopy (EGD) History of surgical procedure (2014) Hx of bilateral cataract extraction (~2014) Hx of colonoscopy Hx of tonsillectomy Social History household members: spouse Smoking Status: Former smoker alcohol intake: former Discharge Assessment & Plan Assessment and Plan Assessment: Patient is progressing as expected after surgery. Plan of Treatment: Plan for discharge to home with his once cleared by Physical therapy. Patient has 5 steps to get into his 1 level home. Discharge Plan Discharge Plan Patient Disposition: Home Provider Discharge Comment: Discharge when safe and cleared by PT Discharge orders & Medications Prescriptions: New acetaminophen 325 mg Tablet 650 mg PO Q6HR PRN (Reason: Pain, Mild (1-3)) Qty: 120 0RF oxycodone 5 mg tablet 5 mg PO Q4-6H PRN (Reason: pain) Qty: 40 0RF ondansetron 4 mg tablet,disintegrating 4 mg PO Q8H PRN (Reason: nausea and vomiting) Qty: 10 0RF Continued pravastatin 40 mg Tablet 40 mg PO BEDTIME meloxicam 15 mg Tablet 15 mg PO DAILY atenolol 25 mg Tablet 25 mg PO DAILY levothyroxine 75 mcg Tablet 75 mcg PO DAILY trazodone 100 mg Tablet 200 mg PO BEDTIME finasteride 5 mg Tablet 2.5 mg PO BEDTIME alfuzosin 10 mg Tablet Extended Release 24 Hr 10 mg PO BEDTIME Rx Instructions: administer after the same meal each day hydrochlorothiazide 12.5 mg Tablet 12.5 mg PO QAM cholecalciferol (vitamin D3) [Vitamin D3] 10 mcg (400 unit) Capsule See Rx Instructions .ROUTE .COMPLEX Rx Instructions: for vitamin supplement Follow up/Referrals: Laci Chery MD [Physician] - As previously scheduled (Follow up with Dr Chery on 07/15/2022 @ 1:[address] [facility] in [place].) Maxine Sosa ARNP [Primary Care Provider] - As previously scheduled (Follow up with Dr Chery on 07/15/2022 @ 1:[address] [facility] in [place].) Diet/Activity/Treatments Diet: Diet as Tolerated Activity: No deep bending or twisting at the waist. No lifting more than 10 pounds. Cold/Heat Therapy: Heating pad to low back as needed for pain. Skin/Wound/Dressing Care Report to your healthcare provider any signs of infection, such as:: chills, fever, night sweats, unusual drainage and unusual redness Dressing: May shower; keep dressing as dry as possible. If dressing becomes wet inside, may remove and replace with clean, dry gauze. No bathing or otherwise soaking incisions. Do not apply any creams, lotions, or ointments to incisions. Visit Report/Discharge Packet Instructions: DI for Transforaminal Lumbar Interbody Fusion Stand Alone Forms: Patient Portal/API, Stroke Signs & Symptoms, Surgery D ischarge Discharge Data Primary Care Provider: Maxine Sosa Quality VTE Deep Vein Thrombosis/Pulmonary Embolism Present on Admission: No
[2022-07-04 08:00] VITALS: BP 144/76; PULSE 74; RESP 17; TEMP 36.6; O2SAT 98
[2022-07-04] MEDS: DOCUSATE 100 MG CAPSULE PO (08:37)
[2022-07-04] MEDS: atenoloL 25 MG TABLET PO (08:37)
[2022-07-04] MEDS: ACETAMINOPHEN 325 MG TABLET 650 MG PO (08:37)
[2022-07-04] MEDS: hydroCHLOROthiazide 25 MG TABLET 12.5 MG PO (08:40)
[2022-07-04] MEDS: hydrOXYzine pamoate 25 MG CAPSULE PO (08:42)
[2022-07-04] MEDS: LEVOTHYROXINE 75 MCG TABLET PO (08:43)
[2022-07-04 11:31] VITALS: BP 126/61; PULSE 72; RESP 17; TEMP 37.1; O2SAT 97
--- NOTE | 2022-07-04 11:52 | OT.IP.TRT ---
Current Diagnoses Spinal stenosis, lumbar region with neurogenic claudication (07/02/22) Surgery Performed Operation Date: 07/02/22 12:30 Actual Procedures p L2-3, L3-4 TLIF w. posterior instrumentation, L1-4 PSF w. instrumentation -Robot - Laci Chery MD Occupational Therapy Treatment Note M2 OT-IP Current Condition Start: 07/03/22 15:33 Freq: Status: Active Protocol: Document 07/03/22 14:03 [facility] (Rec: 07/03/22 15:59 [facility] [id number]) Occupational Therapy Current Condition Current Condition Evaluation Date 07/03/22 Treatment Diagnosis S/p L2-3, L3-4 TLIF, L1-4 PSF Diagnosis Onset Date 07/02/22 Post Operative Precautions Lumbar Precautions Log Roll,No Twisting,Limit Bending,Lifting Restriction of 10 lbs,Gait Belt above Incisional Area M3 OT- IP Subjective and Pain Start: 07/03/22 15:33 Freq: Status: Active Protocol: Document 07/04/22 11:38 [facility] (Rec: 07/04/22 12:43 [facility] [id number]) OT- Subjective Occupational Therapy Visit Type Type Treatment Note Visit Start Time 11:38 Visit Stop Time 11:52 Total Visit Minutes 14 Occupational Therapy Visit Comments Patient Comments Pt states rather stay one more day. Pt's present for caregiver training. Patient/Caregiver Goals To go home. OT Pain Assessment Pain When Pain Assessed At Rest Pain Present Pain Present Pain Reported Location Left Back Intensity 7 Scale Used Numeric (0 - 10) M4 OT- IP ADL's Start: 07/03/22 15:33 Freq: Status: Active Protocol: Document 07/04/22 11:38 [facility] (Rec: 07/04/22 12:43 [facility] [id number]) OT [id number] Comments OT Self-Feeding Comments not at meal time OT ADL-Grooming Comments OT Grooming Comments Pt states just did prior to OT coming into the room OT ADL-Dressing General Eval Lower Body Dressing Ability Standby Assistance Comments OT Dressing Comments Able to practice sock aid and harnessmaker and pt able to do his socks on his own. Pt's states can assist the pt as well. OT ADL-Toileting Comments OT Toileting Comments Not performed. OT ADL-Bathing Comments OT Bathing Comments Pt states in too much pain. M5 OT- IP IADL's Start: 07/03/22 15:33 Freq: Status: Active Protocol: Document 07/03/22 14:03 [facility] (Rec: 07/03/22 15:59 [facility] [id number]) OT-Instrumental Activities of Daily Living Deficits IADL Deficits Identified Deficits Home Safety Awareness Awareness of Need for Assistance at Home Good Awareness Ability to Problem Solve Emergency Able to Problem Solve Situations Home Safety Comments Pt a little groggy and needing vc for safety and assist with balance at this time and will need assist from his for needs. Money Management Money Management Caregiver Provides Assistance Meal Preparation Meal Preparation Caregiver Provides Assist Public Health Nutritionist Public Health Nutritionist Caregiver Provides Assist M6 OT- IP Functional Cognition Start: 07/03/22 15:33 Freq: Status: Active Protocol: Document 07/04/22 11:38 [facility] (Rec: 07/04/22 12:43 [facility] [id number]) Cognitive Factors Limiting Selfcare Function Cognitive Ability Level of Alertness Alert Attention Span Ability Capable of Focused Attention, Capable of Sustained Attention Ability to Follow Commands Able to Follow One Step Commands with Increased Time, Able to Follow One Step Commands with Repetition Safety Awareness Decreased Recall of Precautions,Decreased Ability to Apply Precautions, Underestimates Need for Assistance Cognitive Comments Cognitive Assessment Comments Pt needing cues to use the FWW , cues to follow log rolling, and his back precautions. Pt is a bit impulsive. M7 OT- IP Mobility and Balance Start: 07/03/22 15:33 Freq: Status: Active Protocol: Document 07/04/22 11:38 [facility] (Rec: 07/04/22 12:43 [facility] [id number]) OT- Bed Mobility Assessment Supine to Sit Supine to Sit Assist Minimal Assistance Sit to Supine Sit to Supine Assist Moderate Assistance OT-Transfer Assessment Sit to and From Stand Sit to and from Stand Moderate Assistance,Maximum Assistance Transfers Transfer Ability Minimal Assistance Technique Transfer Destination Bed,Chair Devices Transfer Assistive Devices Gait Belt,Front Wheeled Walker Comments Mobility Comments Pt needing MAX AX 1 to stand from lower surfaces and one up on his feet MEEK with FWW. Pt tends to shake his body as in pain. OT- Balance Assessment Sitting Balance and Reactions Static Sitting Balance Ability Good Dynamic Sitting Balance Ability Good Standing Balance and Reactions Static Standing Balance Ability Fair Dynamic Standing Balance Ability Fair M8 OT- IP Objective Assessments Start: 07/03/22 15:33 Freq: Status: Active Protocol: Document 07/03/22 14:03 [facility] (Rec: 07/03/22 15:59 [facility] [id number]) OT-Muscle Tone Assessment Muscle Tone WNL Yes M9 OT- IP Assessment and Plan Start: 07/03/22 15:33 Freq: Status: Active Protocol: Document 07/04/22 11:38 [facility] (Rec: 07/04/22 12:43 [facility] [id number]) OT Summary Assessment and Plan Potential Rehabilitation Potential Good Analytic Complexity at Evaluation Low Summary OT Impairments Pain,Balance,Functional Mobility,Grooming,Dressing, Toileting,Bathing,Toilet Transfers,Shower Transfers, Activity Tolerance Progress Towards Goals Slow Progress due to Pain,Slow Progress due to Activity Tolerance Assessment Summary Pt needing more assist to stand today up to MAX AX 1. Pt is a bit shaky and impulsive as trying to walk in the room without a device. At this time pt would benefit from skilled rehab as current level too great for pt's to assist. Hopefully if pt's pain able to to controlled better able to go home. OT has initiated caregiver training with pt's . Goals Grooming Goal Independent Dressing Goal Minimal Assistance Toileting Goal Independent Bathing Goal Standby Assistance Toilet Transfer Goal Standby Assistance Shower Transfer Goal Minimal Assistance Patient/Caregiver Education Goal Caregiver Independent Assisting Patient Days to Meet Goals 5 Frequency of Treatment Frequency Of Treatment Once a Day Treatment Plan OT Treatment Plan ADL Training,Functional Mobility,Patient/Family Education,Discharge Planning Discharge Recommendations OT Discharge Recommendations Home with 01/12 Assist Available,Home Health,SNF Rehab,Home vs SNF Transportation Needs at Discharge Private Vehicle,Wheelchair/ Cabulance
--- NOTE | 2022-07-04 12:03 | PT.IPTN ---
Current Diagnoses Spinal stenosis, lumbar region with neurogenic claudication (07/02/22) Surgery Performed Operation Date: 07/02/22 12:30 Actual Procedures p L2-3, L3-4 TLIF w. posterior instrumentation, L1-4 PSF w. instrumentation -Robot - Laci Chery MD Physical Therapy Treatment Note M2 PT-IP Current Condition Start: 07/03/22 10:01 Freq: NEEDED Status: Active Protocol: Document 07/04/22 11:48 [facility] (Rec: 07/04/22 12:03 [facility] [id number]) Physical Therapy Current Condition Current Condition Evaluation Date 07/03/22 Treatment Diagnosis weakness s/p lumbar surgery Onset Date 07/02/22 M3 PT-IP Subjective Start: 07/03/22 10:01 Freq: NEEDED Status: Active Protocol: Document 07/04/22 11:48 [facility] (Rec: 07/04/22 12:03 [facility] [id number]) Subjective Physical Therapy Visit Type Type Treatment Note Visit Start Time 11:10 Visit Stop Time 11:35 Total Visit Minutes 25 Notes Vitals: seated in chair: BP 142/76 HR 74 SaO2 98% on RA Number of DEVELOPMENT EXECUTIVE Visits 1 Physical Therapy Visit Comments Patient Comments Doesn't feel like he would be able to go home today, not feeling well enough. Patient Goals return home but agreeable to going to SNF if needed. Therapy Pain Assessment Pain When Pain Assessed At Rest Pain Present Pain Present Allowed to Sleep Location Left Back Intensity 7 Scale Used 5/10 resting 7-8/10 with mobility Description Spasm,Stabbing,With Movement Pain Behaviors Facial Grimacing,Guarding, Restlessness,Wincing Pain Management Techniques Distraction,Modification of Treatment,Re-positioning, Timing of Activity with Medications M4 PT-IP Mobility and Gait Start: 07/03/22 10:01 Freq: NEEDED Status: Active Protocol: Document 07/04/22 11:48 [facility] (Rec: 07/04/22 12:03 [facility] [id number]) PT-Transfer Assessment Sit to and From Stand Sit to and from Stand Moderate Assistance,1 Person Assistance,Use of Upper Extremities Equipment Transfer Assistive Device Gait Belt,Front Wheeled Walker Orthotic/Prosthetic Devices or Brace: No Transfers Transfer Destination Chair Transfer Technique patient up in chair, transferred back to chair after gait Transfer Ability Level of Assist Moderate Assistance,1 Person Assistance,Use of Upper Extremities Comments Mobility Comments Patient up in chair, had pain medication few hours ago. Agata present for training . Transferred sit to stand with mod assist, c/o pain. Gait in room with FWW 10 ft with unsteadiness/shaking at times. Transferred back to chair per his request with min assist and cues for safety. Patient positioned in chair with pillows for support and assisted into reclined position. Tray table and call light placed within reach, in room. RN getting pain medication for patient. Gait Assessment Gait Gait Assistance Required: Moderate Assistance,1 Person Assist Distance (Feet) 20 Able to Maintain Weight Bearing Status Yes During Gait Assistive Devices Assistive Device Gait Belt,Front Wheeled Walker Orthotic/Prosthetic Devices or Brace: No Gait Deviations General Gait Pattern Antalgic,Decreased Stride Length,Decreased Feet Clearance,Flexed Trunk,Lateral Trunk Lean,Step-to Gait,Wide Based Gait Factors Limiting Gait Function Factors Limiting Gait Function Decreased Activity Tolerance, Decreased Strength,Difficulty Following Directions,Limited Range of Motion,Pain,Poor Balance,Poor Safety Awareness Comments Gait Comments steppage gait left LE due to lack of ankle df. Gait limited to room and unsteadiness/shaking of body at times, patient did not feel up to trying stairs this am. Heavy use of UE's on FWW, cues for safety. Stair Climbing Assessment Comments Stair Climbing Comments Unable to assess due to lack strength, stability, pain and activity tolerance. PT-Balance Assessment Sitting Balance and Reactions Static Sitting Balance Ability Good Dynamic Sitting Balance Ability Fair Standing Balance and Reactions Static Standing Balance Ability Poor Dynamic Standing Balance Ability Poor Device Used FWW M5 PT-IP Objective Assessments Start: 07/03/22 10:01 Freq: NEEDED Status: Active Protocol: Document 07/03/22 12:29 [facility] (Rec: 07/03/22 12:40 [facility] [id number]) Orientation Orientation/Cognition Level of Alertness Alert Orientation Name,Place,Situation Language Function Ability No Deficits Noted Safety Awareness Decreased Safety Awareness Memory Description No Deficits Noted Gross Range of Motion Lower Extremity ROM Assessment Within Functional Limits Strength Comments Strength Comments no MMT due to surgery but 0/5 ankle df and pf left M6 PT-IP Treatment Start: 07/03/22 10:01 Freq: NEEDED Status: Active Protocol: Document 07/04/22 11:48 [facility] (Rec: 07/04/22 12:03 [facility] [id number]) Physical Therapy Treatment Education Education Provided Precautions,Safety M7 PT-IP Assessment and Plan Start: 07/03/22 10:01 Freq: NEEDED Status: Active Protocol: Document 07/04/22 11:48 [facility] (Rec: 07/04/22 12:03 [facility] [id number]) PT Summary Assessment and Plan Potential Rehabilitation Potential Good Status of Condition at Evaluation Evolving Summary Impairments Pain,Strength,Balance,Bed Mobility,Transfers,Gait, Activity Tolerance Progress Towards Goals Slow Progress due to Pain,Slow Progress due to Medical Issues,Slow Progress due to Activity Tolerance Assessment Summary Recommending SNF vs 01/12 available if able to safely support pt. Needs to complete 4 stairs to be able to safely enter house. Will assess progress in pm Goals Bed Mobility Goal Independent Transfer Goal Independent Gait Goal Standby Assistance Gait Distance 120 Other Goals patient able to verbalize post -op precautions Days to Meet Goals 5 Treatment Plan Physical Therapy Treatment Plan Bed Mobility Training,Transfer Training,Gait Training, Therapeutic Exercise,Post Op Education,Hot or Cold Pack Other Recommendations and Next Treatment Check precautions, bed mob, Focus transfers, logroll education, longer distance gait w/FWW w/c follow, stair training if able. Precautions Lumbar Precautions Log Roll,No Twisting,Limit Bending,Lifting Restriction of 10 lbs,Gait Belt above Incisional Area Recommendations To Nursing Amount of Assist Needed 1 Person Assist Discharge Recommendations PT Discharge Recommendations Home with 01/12 Assist Available,Home Health,SNF Rehab,Home vs SNF Transportation Needs at Discharge Private Vehicle,Wheelchair/ Cabulance
--- NOTE | 2022-07-04 13:46 | PT.IPTN ---
Current Diagnoses Spinal stenosis, lumbar region with neurogenic claudication (07/02/22) Surgery Performed Operation Date: 07/02/22 12:30 Actual Procedures p L2-3, L3-4 TLIF w. posterior instrumentation, L1-4 PSF w. instrumentation -Robot - Laci Chery MD Physical Therapy Treatment Note M2 PT-IP Current Condition Start: 07/03/22 10:01 Freq: NEEDED Status: Active Protocol: Document 07/04/22 11:48 SAK (Rec: 07/04/22 12:03 SAK [id number]) Physical Therapy Current Condition Current Condition Evaluation Date 07/03/22 Treatment Diagnosis weakness s/p lumbar surgery Onset Date 07/02/22 M3 PT-IP Subjective Start: 07/03/22 10:01 Freq: NEEDED Status: Active Protocol: Document 07/04/22 13:21 ADDY (Rec: 07/04/22 13:45 LJ [id number]) Subjective Physical Therapy Visit Type Type Treatment Note Visit Start Time 12:52 Visit Stop Time 13:16 Total Visit Minutes 24 Physical Therapy Visit Comments Patient Comments Pt not wanting to go home today Patient Goals return home but agreeable to going to SNF if needed. Therapy Pain Assessment Location Left Back Intensity 6 Scale Used 5/10 resting 7-8/10 with mobility Description Spasm,Stabbing,With Movement Pain Behaviors Facial Grimacing,Guarding, Restlessness,Wincing Pain Management Techniques Distraction,Modification of Treatment,Re-positioning, Timing of Activity with Medications M4 PT-IP Mobility and Gait Start: 07/03/22 10:01 Freq: NEEDED Status: Active Protocol: Document 07/04/22 13:21 ADDY (Rec: 07/04/22 13:45 LJ [id number]) PT-Transfer Assessment Sit to and From Stand Sit to and from Stand Contact Guard Assistance, Minimal Assistance,Moderate Assistance,1 Person Assistance ,Use of Upper Extremities Equipment Transfer Assistive Device Gait Belt,Front Wheeled Walker Orthotic/Prosthetic Devices or Brace: No Transfers Transfer Destination Chair Transfer Technique ambulated Transfer Ability Level of Assist Contact Guard Assistance, Minimal Assistance,1 Person Assistance,Use of Upper Extremities Comments Mobility Comments Patient up in chair, had pain medication 2 hours ago. Agata present for training. Transferred sit to stand with 3 attepts Dev-ModA and cues for using buttocks for stability. C/o pain during transfer. Gait in hallway to lstairs and back to room 100' ft with FWW and CGA with cues for looking forward and keeping body closer to walker for taller posture. Demonstrated unsteadiness/ shaking 2 or 3 times but not as much as during previous treatment. Pt completed stairs x2 with assisting. Ambulated back to room. Transferred back to chair per his request with CGA assist and cues for safety. Patient positioned self in chair which had pillows for support. Reclined himself into comfortable position. Tray table and call light placed within reach, in room. Gait Assessment Gait Gait Assistance Required: Contact Guard Assist,1 Person Assist Distance (Feet) 100 Able to Maintain Weight Bearing Status Yes During Gait Assistive Devices Assistive Device Gait Belt,Front Wheeled Walker Orthotic/Prosthetic Devices or Brace: No Gait Deviations General Gait Pattern Antalgic,Decreased Stride Length,Decreased Feet Clearance,Flexed Trunk Factors Limiting Gait Function Factors Limiting Gait Function Decreased Activity Tolerance, Decreased Strength,Difficulty Following Directions,Limited Range of Motion,Pain,Poor Balance,Poor Safety Awareness Comments Gait Comments Gait consists of steppage pattern d/t reduced df/pf of left ankle. Cues for proximity to FWW and looking forward to straighten trunk. Less shaking this afternoon treatment. Stair Climbing Assessment Evaluation Level of Assist On Stairs Contact Guard Assistance, Minimal Assistance,1 Person Assistance Devices Stair Climbing Assistive Devices Straight Cane,Left Railing Technique/Endurance Stair Climbing Direction Ascend and Descend Stair Climbing Technique Step to Step Number of Steps Climbed 3 Stair Climbing Set # Repetitions (reps) 2 Comments Stair Climbing Comments Pt used rail and SPC heavily. on pts right ascending/ left descending CGA-Dev. Pt stepping slowly and wincing occasionally. Cued for erect posture. Completed stairs 2x per his decision. M5 PT-IP Objective Assessments Start: 07/03/22 10:01 Freq: NEEDED Status: Active Protocol: Document 07/03/22 12:29 NESTOR (Rec: 07/03/22 12:40 [facility] [id number]) Orientation Orientation/Cognition Level of Alertness Alert Orientation Name,Place,Situation Language Function Ability No Deficits Noted Safety Awareness Decreased Safety Awareness Memory Description No Deficits Noted Gross Range of Motion Lower Extremity ROM Assessment Within Functional Limits Strength Comments Strength Comments no MMT due to surgery but 0/5 ankle df and pf left M6 PT-IP Treatment Start: 07/03/22 10:01 Freq: NEEDED Status: Active Protocol: Document 07/04/22 13:21 ADDY (Rec: 07/04/22 13:45 LJ [id number]) Physical Therapy Treatment Education Education Provided Precautions,Safety M7 PT-IP Assessment and Plan Start: 07/03/22 10:01 Freq: NEEDED Status: Active Protocol: Document 07/04/22 13:21 ADDY (Rec: 07/04/22 13:45 LJ [id number]) PT Summary Assessment and Plan Potential Rehabilitation Potential Good Status of Condition at Evaluation Evolving Summary Impairments Pain,Strength,Balance,Bed Mobility,Transfers,Gait, Activity Tolerance Progress Towards Goals Progressing Toward Goals,Slow Progress due to Pain,Slow Progress due to Activity Tolerance Assessment Summary Pt improved with ambulation distance. Completed stairs with Dev from . Pt's mobility affected by pain but able to complete stair training with assist. Pt will be able to be discharged this afternoon. Refused to practice logroll stating he will sleep in chair at home. Goals Bed Mobility Goal Independent Transfer Goal Independent Gait Goal Standby Assistance Gait Distance 120 Other Goals patient able to verbalize post -op precautions Days to Meet Goals 5 Frequency of Treatment Frequency Of Treatment Twice a Day Treatment Plan Physical Therapy Treatment Plan Bed Mobility Training,Transfer Training,Gait Training, Therapeutic Exercise,Post Op Education,Hot or Cold Pack Precautions Lumbar Precautions Log Roll,No Twisting,Limit Bending,Lifting Restriction of 10 lbs,Gait Belt above Incisional Area Recommendations To Nursing Amount of Assist Needed 1 Person Assist Discharge Recommendations PT Discharge Recommendations Home with 01/12 Assist Available,Home Health,Home vs SNF Transportation Needs at Discharge Private Vehicle,Wheelchair/ Cabulance
--- NOTE | 2022-07-04 18:39 | PC.NURSE ---
Pt is A&OX3. VSS, afebrile on RA. BP slightly low and patient receiving narcotics (prn oxycodone for severe pain) antihypertensive medication held this a.m. PT is able to participate with PT and complete stairs this shift. Spouse at bedside supportive. Pt is cleared for discharge after second session with PT. Dressing to back C/D/I, he reports some tingling to BLE's mild. He verbalizes understanding of discharge medications, site care, activity restrictions, s/sx of complication as well as follow up appointment. He is escorted via w/ch to private vehicle with spouse with all belongings including FWW for discharge home this afternoon at approximately 1600.
== END 2022-07-04 15:55 | disposition home or self-care (01) | DRG 455 ==
PROVIDERS: Admitting Provider Orthopaedic Surgery Orthopaedic Surgery of the Spine; PCP Nurse Practitioner Acute Care; Referring Provider Orthopaedic Surgery Orthopaedic Surgery of the Spine; Visit Provider Orthopaedic Surgery Orthopaedic Surgery of the Spine
PROC: 0SG10AJ Fusion of 2 or more Lumbar Vertebral Joints with Interbody Fusion Device, Posterior Approach, Anterior Column, Open Approach (ICD-10-PCS; principal; 2022-07-02 12:30)
DX: M48.062 Spinal stenosis, lumbar region with neurogenic claudication (principal); M43.16 Spondylolisthesis, lumbar region; E78.5 Hyperlipidemia, unspecified; I10 Essential (primary) hypertension; E03.9 Hypothyroidism, unspecified; N40.0 Benign prostatic hyperplasia without lower urinary tract symptoms; Z20.822 Contact with and (suspected) exposure to COVID-19; Z87.891 Personal history of nicotine dependence
CPT/HCPCS: 36415; 72100; 76000; 85014; 85018; 87635; 97116; 97162; 97165; 97530; 97535; C9803; C1831; C9290; J0330; J0690; J1100; J1170; J2060; J2405; J2704; J3010; J3410